=== PATIENT | male | born 1935 | race Caucasian/White ===

== ENCOUNTER 2016-04-09 06:01 | Inpatient (IN) ==
[2016-04-09] MEDS ORDERED: Clindamycin 900 MG/50 ML 900 MG/50 ML IV.SOLN IVPB ONE (06:23)
[2016-04-09] MEDS ORDERED: Albuterol 2.5 MG/3 ML NEBULIZER IH ONE (06:26)
[2016-04-09] MEDS ORDERED: Ringers Solution, Lactated 1,000 ML IVC SCH ×3 (06:30→13:47)
[2016-04-09] MEDS ORDERED: *HR* Rocuronium Bromide 50 MG/5 ML VIAL ONE (06:41)
[2016-04-09] MEDS ORDERED: *HR* Phenylephrine 10 MG/ML VIAL ONE (06:41)
[2016-04-09] MEDS ORDERED: Lidocaine -MPF 2% 2 ML VIAL ONE (06:41)
[2016-04-09] MEDS ORDERED: Lidocaine -MPF 4% 5 ML AMPUL ONE (06:41)
[2016-04-09] MEDS ORDERED: *HR* Succinylcholine 200 MG/10 ML VIAL IVP ONE (06:41)
[2016-04-09] MEDS ORDERED: Ondansetron 4 MG/2 ML VIAL ONE (06:41)
[2016-04-09] MEDS ORDERED: Dexamethasone 4 MG/ML VIAL ONE (06:41)
[2016-04-09] MEDS ORDERED: *HR* FentaNYL (PF) 100 MCG/2 ML VIAL ONE (06:42)
[2016-04-09] MEDS ORDERED: *HR* Remifentanil 1 MG VIAL IVP ONE ×2 (06:42→11:13)
[2016-04-09] MEDS ORDERED: *HR* Propofol 200 MG/20 ML VIAL IVP ONE (06:42)
--- NOTE | 2016-04-09 07:00 | Anesthesia Evaluation PreOp ---
Date of Encounter: 04/09/16 Time of Encounter: 06:58 - Past History Planned Operation: PLIF L1-2 Cardiac History: HTN, Hyperlipidemia, Cardiac Surgery, Pacemaker/ICD (Pacemaker 2008 - interogated 12/24/15) Pulmonary History: Smoker, Pack/yr (1/2 ppd), COPD VOCATIONAL EDUCATION PROFESSIONAL History: Denies Any Significant HX Other Medical History: Diabetes Type II Anesthesia History: No Prior Anesthetic Complications, Past Anesthesia (Back Sx) Alcohol Use: none Drug use: none Medications and Allergies Aspirin 81 mg PO DAILY 04/09/16 [History] Clopidogrel [Plavix] 75 mg PO DAILY 04/09/16 [History] Fluticasone Propionate Nasal [Flonase] 1 spr NS DAILY PRN 04/09/16 [History] HYDROcodone/Acet 7.5/325 mg [[place] 7.5-325 mg] 1 tab PO Q6H PRN 04/09/16 [ History] Insulin Human Regular [HumuLIN R] 0 unit SQ AD MDD sliding scale dose 04/09/16 [History] Insulin NPH, HUMAN [HumuLIN N] 10 unit SQ QPM 04/09/16 [History] Insulin NPH, HUMAN [HumuLIN N] 18 unit SQ QAM 04/09/16 [History] Lisinopril [Zestril] 10 mg PO DAILY 04/09/16 [History] Lovastatin 40 mg PO BID 04/09/16 [History] Metoprolol XL (24 HR) Succ [Toprol XL] 12.5 mg PO BID 04/09/16 [History] Multivit-Min/FA/Lycopen/Lutein [Centrum Silver Men Tablet] 1 each PO DAILY 04/09 [History] NIFEdipine [Nifedipine ER] 30 mg PO DAILY 04/09/16 [History] Nitroglycerin 1 spr NS Q5M PRN 04/09/16 [History] Allergies Amoxicillin Allergy (Verified 04/09/16 06:53) Rash atorvastatin [From Lipitor] Allergy (Verified 04/09/16 06:53) myalgia clavulanic acid [From Augmentin] Allergy (Verified 04/09/16 06:53) Rash esomeprazole [From Nexium] Allergy (Verified 04/09/16 06:53) Abdominal Pain levofloxacin [From Levaquin] Allergy (Verified 04/09/16 06:53) unknown unknown per patient gabapentin Adverse Reaction (Verified 04/09/16 06:53) confusion, fatigue metoclopramide [From Reglan] Adverse Reaction (Verified 04/09/16 06:53) Abdominal Pain - Meds/Allergy Pre-op Review Medications Reviewed: Yes Allergies Reviewed: Yes Beta Blockers on Current Med List: Yes If Beta Blockers taken, Date/Time (Last Dose taken): 04/09/2016 04:00 Anesthesia Results - Labs Laboratory Tests 02/11/16 02/11/16 04/03/16 14:35 14:35 15:15 WBC Hgb Hct Plt Count INR 1.0 Sodium Potassium Chloride Carbon Dioxide BUN Creatinine Glucose 177 H Hemoglobin A1c 6.9 H 04/03/16 04/03/16 04/07/16 15:15 15:15 12:43 WBC 11.1 Hgb 16.0 Hct 49.0 Plt Count 248 INR Sodium 140 Potassium 4.3 Chloride 105 Carbon Dioxide 26 BUN 21 Creatinine 1.39 H Glucose Hemoglobin A1c Echo 11/27 EF-50-55% Min valvular dx - Imaging EKG: image reviewed (Vent paced) Anesthesia Exam O2 Sat Height 1.7 m Height 1.7 m Height 1.7 m Weight 68.492 kg Weight 68.492 kg Weight 68.492 kg O2 Sat by Pulse Oximetry 99 O2 Sat by Pulse Oximetry 99 Vital Signs Temp Pulse Resp BP Pulse Ox 97.7 F 84 18 133/72 99 04/09/16 06:38 04/09/16 06:38 04/09/16 06:38 04/09/16 06:38 04/09/16 06:38 Height: 5'7'' Weight: 151# NPO (# of Hours): > 8 Hrs Pain Scale: 0 Pain Scale Used: Numeric (1 - 10) - HEENT Pupil (Motor): Pupils equal, EOMI Mallampati: II Teeth: Missing Denture Type: Upper: Complete Oral Opening: Greater than 3 - VOCATIONAL EDUCATION PROFESSIONAL LOC: Oriented VOCATIONAL EDUCATION PROFESSIONAL Motor: Normal RUE, Normal LUE, Normal RLE, Normal LLE, Normal Face VOCATIONAL EDUCATION PROFESSIONAL Sensory: Normal: RUE, LUE, RLE, LLE, Face - Cardiac Rhythm: Regular Murmur: None JVD: No Carotid Bruit: No - Pulmonary Breath Sounds: bilateral Clear Respiratory Effort: Symmetrical Anesthesia Assess/Plan ASA Score: 3 Modified Jus Scale for Level of Consciousness: Cooperative, oriented, and tranquil Anesthetic Plan: General Autologous Blood: Yes Monitoring Plan: Standard Monitors Recovery Plan: PACU
--- NOTE | 2016-04-09 07:35 | History & Physical Report ---
Date of Encounter: 04/09/16 Time of Encounter: 07:35 24 Hour HP Update - Instructions Instructions: If the History and Physical is less than 30 days old and was completed prior to A.M. admission and or procedure and has NOT been updated on calendar day of procedure please complete this update prior to performing procedure. - Update Patient reports changes in Medical Condition: No Changes in assessment/condition: No Changes in Medication: No Preop tests/diagnostics Reviewed: Yes Pre-Op MRSA Screen: Negative Surgery Remains Indicated: Yes Consent for Planned Operative Procedure(s) Verified: Yes - Pre-Operative Checklist Preoperative Checklist Indicated: No Prophylactic Antibiotic Ordered: Yes Home Medications Include Beta Jn: No Beta Jn Taken Today (Day of Surgery): No Beta Jn Taken Yesterday (Day Prior to Surgery): No Is VTE Prophylaxis Indicated?: Yes
[2016-04-09] MEDS ORDERED: *HR* Vasopressin 20 UNIT/ML VIAL ONE (07:42)
--- NOTE | 2016-04-09 12:29 | Orthopedic Operative Note ---
Date of procedure: 04/09/16 Pre-op diagnosis: lumbar stenosis, lumbar radiculopathy, s/p lumbar fusion Post-op diagnosis: same Operation/Findings: Exploration of fusion, removal of hardware, posterior lumbar inerbody fusion L1- L2: The patient successfully underwent general endotracheal anesthesia. The patient was given antibiotics prior to the start of the procedure. Compression boots and stockings were used for deep vein thrombosis prophylaxis. A Salgado catheter was placed. Leads for neuro monitoring were placed on the upper and lower extremities. This included the cranium. The neuro monitoring personnel confirmed there were satisfactory readings prior to the start of the procedure. The patient was turned prone on the Lukas table. The back was prepped and draped in the usual sterile fashion. An incision was was marked and centered over the involved L1-L5 levels in the mid line. He had a history of previous instrumented fusion. The incision was deepened through the lumbar fascia. Bovie cautery and Choi elevators were used to reflect the paraspinal musculature at the lateral extent of the transverse processes of the involved L1 -L4 levels. We explored and palpated the fusion mass and instrumentation from L2-L5. There appeared to be fusion without significant pseudoarthrosis and with appropriate placement of the instrumentation. Since there was a solid arthrodesis we elected not to remove all the previous instrumentation. We used a cutting bur to cut through the quarter-inch rods bilaterally distal to the L2 pedicle screws and proximal to the L3 pedicle screws. We subsequently removed the remaining emilee and L2 pedicle construct bilaterally, leaving the L3-L5 pedicle screws with rods intact. We then placed pedicle screws in standard fashion with the aid of fluoroscopy and anatomic landmarks. Briefly a starter awl was used. A gearshift was subsequently used to enter the oversize load pilot escort hole via a transpedicular route into the vertebral body. The oversize load pilot escort hole was tapped with an undersized instrument, and subsequently four 6.5 x 40 mm pedicle screws were placed bilaterally at the indicated L1 and L2 levels. The screws were tested with the aid of the neurologic monitoring staff via pedicle screw stimulation. All reading suggested there was no significant cortical wall breech. The screws were also evaluated fluoro- graphically and appeared to be in satisfactory position. We then turned our attention to the decompression portion of the procedure. We removed the supraspinous and interspinous ligaments and subsequently the insertion of the ligamentum flavum on the undersurface of the proximal L1 lamina was dislodged with a curette. We then removed the ligamentum flavum as well as undercut the facets at this L1-L2 level to decompress the lateral recesses. We also performed a L1 laminectomy. This stenosis at this level was extensive and required bilateral medial facetectomies as well as undercutting the facets. After the decompression, which was over and above that which was required to place the interbody graft, the foramen and traversing roots at this level were found to be free and patent. We also took a large portion of the right L1-L2 facet and an approach more similar with a transforaminal approach. We then protected the neural elements including the thecal sac and traversing nerve root on the right at L1- L2 with a dural retractor. We made an annulotomy into the L1-L2 disc space and then removed entire L1-L2 disc material using Pituitary instruments. We trialed various size grafts after the endplates were prepared for graft insertion. An 8 x 26 enter body graft fit well within the L1-L2 disc space. We obtained some bone from the right posterior superior iliac spine through us a separate incision and combined with this with the bone which we had saved from the laminectomy portion of the procedure. This autograft bone was first placed in the anterior portion of the L1-L2 disc space and additional bone was placed within the interbody graft spacer. We then placed the interbody graft spacer obliquely across the disc space towards the midline while protecting the neural elements with a root retractor. When the graft was found to be in satisfactory position the business development specialist was removed. We then copiously irrigated the wound. We then decorticated the transverse processes as well as the facet joints of the involved L1-L2 and L2-3 level levels to aid in the posterolateral fusion. We placed autograft bone in the lateral gutters over these L1, L2, and L3 regions. We then placed rods within the screw heads at L1-L2 and connected this construct using a Mobile to the previous instrumentation at L2-L5. We locked and finally tightened construct which now and L1-L5 with interbody graft at L1-L2. We then closed the wound in layers with 1 Vicryl for the fascia, 2-0 Vicryl. Subcutaneous tissue, and Dermabond was used for skin closure. Sterile dressings were placed over the wound. The patient was turned supine on a hospital bed and extubated. All sponge instruments and needle counts were correct at the end of the procedure. The patient tolerated the procedure well without complications. Anesthesia: GETA Surgeon: Kendall Lara Jr Estimated blood loss (cc): 200 Condition: stable Disposition: PACU
[2016-04-09] MEDS: *HR* Morphine 2 MG/ML SYRINGE IVP PRN ×4 (12:38→13:13)
[2016-04-09] MEDS ORDERED: Furosemide 20 MG/2 ML VIAL IVP ONE (12:57)
--- NOTE | 2016-04-09 13:20 | Anesthesia Evaluation Post Op ---
Date of Encounter: 04/09/16 Time of Encounter: 13:18 - Vital Signs Vital Signs: Vital Signs/O2 Sat/Glucose, Most Recent Temp Pulse Resp BP Pulse Ox 97.0 F L 60 14 151/71 92 L 04/09/16 12:59 04/09/16 12:59 04/09/16 12:59 04/09/16 12:59 04/09/16 12:59 Blood Glucose* 122 - Lungs Lungs: Clear Ascult./Percussion - Airway Airway: Non-obstructed - Cardiovascular Regular Rate, Baseline Rhythm - Mental Status Mental Status: Alert & Oriented, Answers Appropriately - Pain Pain Scale: 0 (treated with morphine, resting comfortably) Pain Scale used: Numeric (1 - 10) - Nausea Vomiting Nausea Vomiting: Not Present - Hydration Hydration: NPO Notes: initially low U.O., recieved lasix 5mg, U.O. improved. 04/09/16 13:19 - Discharge PostOp Status: Transfer Patient to floor
[2016-04-09] MEDS ORDERED: Fluticasone Propionate Nasal 50 MCG/SPRAY BOTTLE NS PRN (13:47)
[2016-04-09] MEDS ORDERED: Naloxone 0.4 MG/ML INJ IVP PRN (13:47)
[2016-04-09] MEDS ORDERED: Nitroglycerin Spray 4.9 GM BOTTLE TL PRN (13:47)
[2016-04-09] MEDS ORDERED: Sennosides 8.6 MG TABLET PO PRN (13:47)
[2016-04-09] MEDS ORDERED: *HR* Morphine 2 MG/ML SYRINGE IVP PRN (13:47)
[2016-04-09] MEDS: *HR* OxyCODONE Immed Rel 5 MG TABLET PO PRN ×2 (15:47→22:07)
[2016-04-09] MEDS: Clindamycin 600 MG/50 ML 600 MG/50 ML IV.SOLN IVPB SCH ×2 (15:47→23:15)
[2016-04-09] MEDS ORDERED: ceFAZolin 2,000 MG in D5% in Water 100 ML IVPB SCH (16:00)
[2016-04-09] MEDS ORDERED: Insulin NPH 100 UNIT/ML (x5UNIT) SQ SCH (18:00)
[2016-04-09] MEDS: Metoprolol XL (24 HR) Succ 25 MG TAB.ER.24H PO SCH (20:24)
[2016-04-09] MEDS: Ondansetron 4 MG/2 ML VIAL IVP PRN (22:07)
[2016-04-10] MEDS: *HR* Morphine 2 MG/ML SYRINGE IVP PRN (00:53)
[2016-04-10] MEDS: *HR* OxyCODONE Immed Rel 5 MG TABLET PO PRN ×3 (04:45→23:53)
[2016-04-10 04:46] LABS: Basophils % 0.2 %; Eosinophils % 0.1 %; Hematocrit 37.3 % (37.5-50.1); Immature Granulocytes % 0.5 % (0-4); Immature Platelets 4.2 % (1.1-6.1); Lymphocytes # 1.6 K/mcL (0.6-4.6); Lymphocytes % 10.6 %; Mean Corpuscular HGB Conc 33.5 g/dL (31.6-35.5); Mean Corpuscular Hemoglobin 30.1 pg (28.0-33.3); Mean Corpuscular Volume 89.9 fL (83.0-100.0); Mean Platelet Volume 9.8 fL (9.4-12.4); Monocytes # 1.8 K/mcL (0.0-1.3); Neutrophils # 11.6 K/mcL (1.6-8.9); Platelet Count 197 K/mcL (140-400); Red Blood Count 4.15 M/mcL (4.19-5.50); Red Cell Distribution Width 13.7 % (11.5-14.5); Segmented Neutrophils % 76.6 %
[2016-04-10 04:47] LABS: Hemoglobin 12.5 g/dL (12.9-16.9)
[2016-04-10 04:58] LABS: Calcium 8.5 mg/dL (8.6-10.8); Potassium 4.8 mEq/L (3.5-4.5)
--- NOTE | 2016-04-10 06:11 | Electrocardiograph Report ---
Test Date: 2016-04-09 Pat Name: Ricky Wang Department: 106 Room: [facility] Gender: M Wire Worker: [facility] : 1935 Requested By: Obey Walker Order Number: [id number] Reading MD: Mason Baker MD Measurements Intervals [place] Rate: 60 P: 252 AL: 149 QRS: -90 QRSD: 159 T: 117 QT: 453 QTc: 453 Interpretive Statements ELECTRONIC ATRIAL PACEMAKER ELECTRONIC VENTRICULAR PACEMAKER ABNORMAL RHYTHM ECG Electronically Signed On 04-10-16 06:08:21 EST by Mason Baker MD
[2016-04-10] MEDS ORDERED: Aspirin 81 MG TAB.CHEW PO SCH (09:00)
[2016-04-10] MEDS ORDERED: Insulin NPH 100 UNIT/ML (x5UNIT) SQ SCH (09:00)
[2016-04-10] MEDS ORDERED: NIFEdipine XL (24 HR) 30 MG TAB.ER.24 PO SCH (09:00)
[2016-04-10] MEDS: Metoprolol XL (24 HR) Succ 25 MG TAB.ER.24H PO SCH ×2 (09:13→20:14)
[2016-04-10] MEDS: Multivit/Ca/Min/Fe/FA 1 TAB TABLET PO SCH (09:15)
[2016-04-10] MEDS: Insulin NPH 100 UNIT/ML (x5UNIT) SQ SCH ×2 (09:50→17:07)
[2016-04-10] MEDS: Ondansetron 4 MG/2 ML VIAL IVP PRN (09:56)
--- NOTE | 2016-04-10 17:11 | Spine Progress Note ---
Date of Encounter: 04/10/16 Time of Encounter: 17:08 Subjective Principal diagnosis: lumbar stenosis, lumbar radiculopathy, history of lumbar fusion Interval history: The patient is without complaints. Afebrile vital signs are stable. Dressing changess due to sauraion wih some heme. Neurovascularly intact with regard to bilateral lower extremities. Fires all upper and lower extremity motor groups. Assessment :stable. Plan mobilize ,continue analgesics, discharge planning. Objective Vital signs: Vital Signs Temp Pulse Resp BP Pulse Ox 04/10/16 14:58 99.4 F 60 14 136/60 99 04/10/16 11:12 99.6 F 60 17 96 04/10/16 07:04 99.6 F 60 16 126/64 93 L 04/10/16 04:46 99.8 F H 60 16 137/61 95 04/10/16 00:00 98.4 F 62 17 154/62 96 04/09/16 20:33 98.8 F 62 16 153/66 99 Intake and Output 04/10/16 04/10/16 04/10/16 07:59 15:59 23:59 Intake Total 300 / 300 480 / 480 Output Total 3300 / 3300 Balance -3000 / -3000 480 / 480 Intake: IV Fluids 50 / 50 Cleocin 600 MG/50 ML 600 50 / 50 mg In 50 ml @ 50 mls/hr IVPB Q8H [facility] Rx#: [id number] Oral 250 / 250 480 / 480 Output: Urine 750 / 750 Urethral ([place]) 750 / 750 Catheter 2550 / 2550 Other: Blood Glucose* 180 196 140 - Labs CBC & BMP: 04/10/16 04:34 04/10/16 04:34 Labs: Abnormal lab results WBC 15.2 K/mcL (4.3-11.1) H 04/10/16 04:34 RBC 4.15 M/mcL (4.19-5.50) L 04/10/16 04:34 Hgb 12.5 g/dL (12.9-16.9) L D 04/10/16 04:34 Hct 37.3 % (37.5-50.1) L 04/10/16 04:34 Neutrophils # 11.6 K/mcL (1.6-8.9) H 04/10/16 04:34 Monocytes # 1.8 K/mcL (0.0-1.3) H 04/10/16 04:34 Sodium 135 mEq/L (136-145) L 04/10/16 04:34 Potassium 4.8 mEq/L (3.5-4.5) H 04/10/16 04:34 Creatinine 1.44 mg/dL (0.72-1.25) H 04/10/16 04:34 Est GFR ( Amer) 58 (> 60) L 04/10/16 04:34 Est GFR (Non-Af Amer) 47 (> 60) L 04/10/16 04:34 Glucose 222 mg/dL (70-99) H 04/10/16 04:34 POC Glucose 195 (58-89) H 04/09/16 20:13 Calcium 8.5 mg/dL (8.6-10.8) L 04/10/16 04:34 Consult Discharge Plan - Plan Referrals: Niki Carmona, KONG [Primary Care Provider] - 06/24/16 12:30 pm
[2016-04-10] MEDS: Aspirin 81 MG TAB.CHEW PO SCH (18:16)
[2016-04-10] MEDS: NIFEdipine XL (24 HR) 30 MG TAB.ER.24 PO SCH (18:16)
[2016-04-10] MEDS: Insulin LISPRO 300 UNITS/3 ML VIAL SQ SCH (20:14)
[2016-04-11] MEDS: Metoprolol XL (24 HR) Succ 25 MG TAB.ER.24H PO SCH ×2 (08:13→19:42)
[2016-04-11] MEDS: Multivit/Ca/Min/Fe/FA 1 TAB TABLET PO SCH (08:14)
[2016-04-11] MEDS: Insulin LISPRO 300 UNITS/3 ML VIAL SQ SCH ×4 (08:15→21:23)
[2016-04-11] MEDS: Insulin NPH 100 UNIT/ML (x5UNIT) SQ SCH ×2 (09:13→17:49)
--- NOTE | 2016-04-11 13:01 | Discharge Summary ---
Date of Encounter: 04/11/16 Time of Encounter: 12:59 - Discharge Diagnosis (1) Lumbar stenosis Priority: Primary Status: Chronic (2) Lumbar radiculopathy Priority: Secondary Status: Chronic (3) Status post lumbar spinal fusion Priority: Secondary Status: Chronic - Discharge Medications Prescriptions: OxyCODONE Immed Rel [Roxicodone 5 MG] 5 mg PO Q6HR PRN #60 tablet PRN Reason: Severe Pain Home Medications: Aspirin 81 mg PO DAILY 04/09/16 [History] Clopidogrel [Plavix] 75 mg PO DAILY 04/09/16 [History] Fluticasone Propionate Nasal [Flonase] 1 spr NS DAILY PRN 04/09/16 [History] HYDROcodone/Acet 7.5/325 mg [[place] 7.5-325 mg] 1 tab PO Q6H PRN 04/09/16 [ History] Insulin Human Regular [HumuLIN R] 0 unit SQ AD MDD sliding scale dose 04/09/16 [History] Insulin NPH, HUMAN [HumuLIN N] 10 unit SQ QPM 04/09/16 [History] Insulin NPH, HUMAN [HumuLIN N] 18 unit SQ QAM 04/09/16 [History] Lisinopril [Zestril] 10 mg PO DAILY 04/09/16 [History] Lovastatin 40 mg PO BID 04/09/16 [History] Metoprolol XL (24 HR) Succ [Toprol Xl] 12.5 mg PO BID 04/09/16 [History] Multivit-Min/FA/Lycopen/Lutein [Centrum Silver Men Tablet] 1 each PO DAILY 04/09 [History] NIFEdipine [Nifedipine ER] 30 mg PO DAILY 04/09/16 [History] Nitroglycerin 1 spr NS Q5M PRN 04/09/16 [History] OxyCODONE Immed Rel [Roxicodone 5 MG] 5 mg PO Q6HR PRN #60 tablet 04/11/16 [Rx] Allergies/Adverse Reactions: Allergies Amoxicillin Allergy (Verified 04/09/16 06:53) Rash atorvastatin [From Lipitor] Allergy (Verified 04/09/16 06:53) myalgia clavulanic acid [From Augmentin] Allergy (Verified 04/09/16 06:53) Rash esomeprazole [From Nexium] Allergy (Verified 04/09/16 06:53) Abdominal Pain levofloxacin [From Levaquin] Allergy (Verified 04/09/16 06:53) unknown unknown per patient gabapentin Adverse Reaction (Verified 04/09/16 06:53) confusion, fatigue metoclopramide [From Reglan] Adverse Reaction (Verified 04/09/16 06:53) Abdominal Pain Labs on day of discharge: Labs from last 24 hours 04/10/16 04/10/16 04/10/16 20:11 16:43 11:06 POC Glucose 135 H 140 H 196 H 04/10/16 07:43 POC Glucose 180 H - Impressions ITS Impressions Lumbar Spine X-Ray 04/09/16 00:00 IMPRESSION: Interval revision of posterior fusion of the lumbar spine which now includes L1 through L5. D/ / 04/09/2016 13:55:40 You Pretty MD / radha Interpreting Provider: You Pretty MD Lumbar Spine X-Ray 04/11/16 09:30 IMPRESSION: Multilevel degenerative changes seen within the lumbar spine status post posterior spinal fusion. The hardware appears intact, and stable in alignment. No interval change. D/ / John Harrison MD / John Harrison MD Interpreting Provider: John Harrison MD Date of admission: 04/09/16 13:51 Primary care physician: Niki Carmona CNP Consults: 04/09/16 13:47 Consult to Occupational Therapy [CONS] Routine Comment: Evaluate, develop and implement POC Consult to Physical Therapy [CONS] Routine Comment: Evaluate, develop and implement POC Consult to Spine Navigator [CONS] [CONS] Routine 04/11/16 05:16 Consult to Manager Support [CONS] Routine Reason for SW Consult: Pt states he want to go to rehab. Pt has limitied mobility and no help at home. - Patient Status Disposition: Home Health Service Condition: Good Functional capacity at discharge: uses cane/walker Overall status at discharge: patient is progressing back to baseline - Discharge Instructions Follow Up With: Niki Carmona CNP [Primary Care Provider] - 06/24/16 12:30 pm - Diet and Activity Activity: as per physical therapy Diet: advance to your usual diet - Hospital Course Hospital course: Mr. Wang is a 80 year old male The patient had an uneventful postoperative course. Progressed from intravenous analgesic needs to oral analgesic needs only. Remained neurovascularly intact and mobilized satisfactorily. All intraoperative and/or postoperative radiographic studies were satisfactory. Patient is discharged with plan for rehabilitation and follow-up in 2 weeks post discharge on analgesic medication and patient's home medications. - Time Spent with Patient Total time spent providing and/or coordinating discharge services: - VTE Documentation of Mechanical Device: Intermittent pneumatic compression device
[2016-04-11] MEDS: *HR* OxyCODONE Immed Rel 5 MG TABLET PO PRN ×2 (15:47→23:49)
[2016-04-11] MEDS: NIFEdipine XL (24 HR) 30 MG TAB.ER.24 PO SCH (17:49)
[2016-04-11] MEDS: Aspirin 81 MG TAB.CHEW PO SCH (17:49)
[2016-04-11] MEDS ORDERED: NIFEdipine XL (24 HR) 30 MG TAB.ER.24 PO SCH (19:00)
[2016-04-12] MEDS: *HR* Morphine 2 MG/ML SYRINGE IVP PRN (02:44)
[2016-04-12] MEDS: Insulin LISPRO 300 UNITS/3 ML VIAL SQ SCH ×4 (07:26→20:58)
[2016-04-12] MEDS: Metoprolol XL (24 HR) Succ 25 MG TAB.ER.24H PO SCH ×2 (08:49→21:07)
[2016-04-12] MEDS: Multivit/Ca/Min/Fe/FA 1 TAB TABLET PO SCH (08:49)
[2016-04-12] MEDS: Insulin NPH 100 UNIT/ML (x5UNIT) SQ SCH ×2 (08:49→17:05)
[2016-04-12 13:31] LABS: Basophils % 0.1 %; Eosinophils % 0.3 %; Hemoglobin 11.8 g/dL (12.9-16.9); Immature Granulocytes % 0.5 % (0-4); Immature Platelets 4.9 % (1.1-6.1); Lymphocytes % 7.3 %; Mean Corpuscular HGB Conc 33.7 g/dL (31.6-35.5); Mean Corpuscular Hemoglobin 30.4 pg (28.0-33.3); Mean Corpuscular Volume 90.2 fL (83.0-100.0); Mean Platelet Volume 9.9 fL (9.4-12.4); Monocytes # 1.3 K/mcL (0.0-1.3); Monocytes % 9.6 %; Platelet Count 190 K/mcL (140-400); Red Blood Count 3.88 M/mcL (4.19-5.50); Red Cell Distribution Width 13.4 % (11.5-14.5); Segmented Neutrophils % 82.2 %
--- NOTE | 2016-04-12 14:16 | Orthopedics Progress Note ---
Date of Encounter: 04/12/16 Time of Encounter: 14:00 - Assessment and Plan (1) Status post lumbar spinal fusion Current Visit: Yes Status: Chronic Postoperative day #3, wound is still draining and patient's. Using fevers Patient placed on IV vancomycin We will do a complete fever workup on the patient. Subjective Principal diagnosis: lumbar stenosis, lumbar radiculopathy, history of lumbar fusion Interval history: The patient states he had some burning of both legs last night, but is doing well today. Back: Serosanguineous drainage, dressing was changed last night. Incision is intact, no erythema. Bilateral knees are grossly neurovascularly intact. Bilateral calves are soft and nontender Objective Vital signs: Vital Signs Temp Pulse Resp BP Pulse Ox 04/12/16 11:41 100.3 F H 93 18 154/64 97 04/12/16 06:38 98.9 F 69 16 124/58 93 L 04/12/16 03:14 99.5 F 66 16 120/56 91 L 04/11/16 23:39 99.4 F 59 16 123/56 97 04/11/16 19:55 99.5 F 63 16 130/64 96 04/11/16 15:14 99.3 F 60 18 125/48 98 Intake and Output 04/11/16 04/12/16 04/12/16 23:59 07:59 15:59 Intake Total 150 / 150 Output Total 610 / 610 250 / 250 650 / 650 Balance -460 / -460 -250 / -250 -650 / -650 Intake: Oral 150 / 150 Output: Urine 610 / 610 250 / 250 650 / 650 Other: Blood Glucose* 123 105 188 Incision: draining (Serosanguineous) - Labs CBC & BMP: 04/12/16 13:22 04/10/16 04:34 Labs: Abnormal lab results WBC 13.4 K/mcL (4.3-11.1) H 04/12/16 13:22 RBC 3.88 M/mcL (4.19-5.50) L 04/12/16 13:22 Hgb 11.8 g/dL (12.9-16.9) L 04/12/16 13:22 Hct 35.0 % (37.5-50.1) L 04/12/16 13:22 Neutrophils # 11.0 K/mcL (1.6-8.9) H 04/12/16 13:22 Sodium 135 mEq/L (136-145) L 04/10/16 04:34 Potassium 4.8 mEq/L (3.5-4.5) H 04/10/16 04:34 Creatinine 1.44 mg/dL (0.72-1.25) H 04/10/16 04:34 Est GFR ( Amer) 58 (> 60) L 04/10/16 04:34 Est GFR (Non-Af Amer) 47 (> 60) L 04/10/16 04:34 Glucose 222 mg/dL (70-99) H 04/10/16 04:34 POC Glucose 123 (58-89) H 04/11/16 19:57 Calcium 8.5 mg/dL (8.6-10.8) L 04/10/16 04:34 C-Reactive Protein 157 mg/L (Less than 5) H 04/12/16 13:22 - VTE Documentation of Mechanical Device: Intermittent pneumatic compression device Consult Discharge Plan - Plan Referrals: Niki Carmona CNP [Primary Care Provider] - 06/24/16 12:30 pm Prescriptions: OxyCODONE Immed Rel [Roxicodone 5 MG] 5 mg PO Q6HR PRN #60 tablet PRN Reason: Severe Pain
[2016-04-12] MEDS: Vancomycin 1,000 MG in D5% in Water 250 ML IVPB SCH (14:20)
[2016-04-12] MEDS: Acetaminophen 325 MG TABLET PO PRN (14:20)
[2016-04-12 18:13] LABS: Bacteria,Urine Many per hpf (None-Few); Hyaline Casts,Urine None Seen per lpf (None-Few); Squamous Epithelial Cell,Urine Moderate per lpf (None-Few); WBC,Urine TNTC per hpf (0-3)
[2016-04-12 18:15] LABS: Bilirubin,Urine Negative (Negative); Blood,Urine Small (Negative); Clarity,Urine Clear (Clear); Color,Urine Yellow (Yellow); Glucose,Urine (UA) Normal (Normal); Ketones,Urine Negative (Negative); Leukocyte Esterase,Urine Moderate (Negative); Nitrite,Urine Negative (Negative); Protein,Urine 100 mg/dL (Neg-Trace); Specific Gravity,Urine 1.015 (1.010-1.025); Urobilinogen,Urine Normal (Normal)
[2016-04-12] MEDS: Aspirin 81 MG TAB.CHEW PO SCH (18:34)
[2016-04-12] MEDS: NIFEdipine XL (24 HR) 30 MG TAB.ER.24 PO SCH (18:34)
[2016-04-12] MEDS: *HR* OxyCODONE Immed Rel 5 MG TABLET PO PRN (21:14)
[2016-04-13] MEDS: Insulin LISPRO 300 UNITS/3 ML VIAL SQ SCH ×4 (08:15→19:25)
[2016-04-13] MEDS ORDERED: MOM Conc 10 ML UD.LIQ PO PRN (08:50)
[2016-04-13] MEDS: Multivit/Ca/Min/Fe/FA 1 TAB TABLET PO SCH (08:58)
[2016-04-13] MEDS: Insulin NPH 100 UNIT/ML (x5UNIT) SQ SCH ×2 (08:58→17:40)
[2016-04-13] MEDS: Metoprolol XL (24 HR) Succ 25 MG TAB.ER.24H PO SCH ×2 (08:58→19:21)
[2016-04-13 09:19] LABS: Basophils % 0.2 %; Eosinophils # 0.2 K/mcL (0.0-0.6); Eosinophils % 1.8 %; Hematocrit 35.5 % (37.5-50.1); Hemoglobin 11.8 g/dL (12.9-16.9); Immature Granulocytes % 0.6 % (0-4); Immature Platelets 4.3 % (1.1-6.1); Lymphocytes # 0.8 K/mcL (0.6-4.6); Mean Corpuscular HGB Conc 33.2 g/dL (31.6-35.5); Mean Corpuscular Hemoglobin 30.3 pg (28.0-33.3); Mean Platelet Volume 9.8 fL (9.4-12.4); Monocytes # 1.2 K/mcL (0.0-1.3); Monocytes % 9.4 %; Neutrophils # 10.8 K/mcL (1.6-8.9); Platelet Count 232 K/mcL (140-400); Red Cell Distribution Width 13.5 % (11.5-14.5)
[2016-04-13] MEDS: *HR* OxyCODONE Immed Rel 5 MG TABLET PO PRN ×2 (11:16→19:21)
[2016-04-13 12:35] LABS: BUN/Creatinine Ratio 16 (6-26); Blood Urea Nitrogen 21 mg/dL (8-26); eGFR For African Americans > 60 (> 60); eGFR For Non-African Americans 52 (> 60)
--- NOTE | 2016-04-13 13:15 | Orthopedics Progress Note ---
Date of Encounter: 04/13/16 Time of Encounter: 13:12 - Assessment and Plan (1) Status post lumbar spinal fusion Current Visit: Yes Status: Chronic Postoperative day #, wound is still draining. Fevers have stopped Positive urinalysis Continue on IV vancomycin Dr. Lara will be seeing the patient this evening. Subjective Principal diagnosis: lumbar stenosis, lumbar radiculopathy, history of lumbar fusion Interval history: The patient states he had some burning of both legs last night, but is doing well today. He says usually when he sits up for a while and his legs dangle down the remaining goes away Back: Serosanguineous drainage, dressing was changed this morning, partially so. Bilateral extremities are grossly neurovascularly intact. Bilateral calves are soft and nontender Objective Vital signs: Vital Signs Temp Pulse Resp BP Pulse Ox 04/13/16 10:09 98.1 F 64 18 137/56 95 04/13/16 08:56 60 134/52 04/13/16 06:22 97.9 F 64 16 104/53 96 04/13/16 00:00 98.2 F 61 14 108/53 95 04/12/16 21:20 98.6 F 63 14 112/49 94 L 04/12/16 21:00 95 04/12/16 15:49 99.5 F 04/12/16 14:56 98.8 F 97 16 147/68 96 Intake and Output 04/12/16 04/13/16 04/13/16 23:59 07:59 15:59 Output Total 300 / 300 300 / 300 Balance -300 / -300 -300 / -300 Output: Urine 300 / 300 300 / 300 Other: Blood Glucose* 211 114 179 Incision: draining (Mild serosanguineous drainage) - Labs CBC & BMP: 04/13/16 09:06 04/13/16 12:10 Labs: Abnormal lab results WBC 13.2 K/mcL (4.3-11.1) H 04/13/16 09:06 RBC 3.90 M/mcL (4.19-5.50) L 04/13/16 09:06 Hgb 11.8 g/dL (12.9-16.9) L 04/13/16 09:06 Hct 35.5 % (37.5-50.1) L 04/13/16 09:06 Neutrophils # 10.8 K/mcL (1.6-8.9) H 04/13/16 09:06 ESR 55 mm/hr (0-10) H 04/13/16 09:06 Sodium 135 mEq/L (136-145) L 04/10/16 04:34 Potassium 4.8 mEq/L (3.5-4.5) H 04/10/16 04:34 Creatinine 1.34 mg/dL (0.72-1.25) H 04/13/16 12:10 Est GFR (Non-Af Amer) 52 (> 60) L 04/13/16 12:10 Glucose 222 mg/dL (70-99) H 04/10/16 04:34 POC Glucose 211 (58-89) H 04/12/16 19:39 Calcium 8.5 mg/dL (8.6-10.8) L 04/10/16 04:34 C-Reactive Protein 157 mg/L (Less than 5) H 04/12/16 13:22 Urine Protein 100 mg/dL (Neg-Trace) H 04/12/16 18:00 Urine Blood Small (Negative) H 04/12/16 18:00 Ur Leukocyte Esterase Moderate (Negative) H 04/12/16 18:00 Urine Microscopic RBC 3-5 per hpf (0-3) H 04/12/16 18:00 Urine Microscopic WBC TNTC per hpf (0-3) H 04/12/16 18:00 Ur Squamous Epith Cells Moderate per lpf (None-Few) H 04/12/16 18:00 Urine Bacteria Many per hpf (None-Few) H 04/12/16 18:00 Ur Culture Indicated? YES (NO) A 04/12/16 18:00 - VTE Documentation of Mechanical Device: Intermittent pneumatic compression device Consult Discharge Plan - Plan Referrals: Niki Carmona, [employer] [Primary Care Provider] - 06/24/16 12:30 pm Prescriptions: OxyCODONE Immed Rel [Roxicodone 5 MG] 5 mg PO Q6HR PRN #60 tablet PRN Reason: Severe Pain
[2016-04-13] MEDS: Vancomycin 1,000 MG in D5% in Water 250 ML IVPB SCH (14:45)
[2016-04-13] MEDS: NIFEdipine XL (24 HR) 30 MG TAB.ER.24 PO SCH (19:25)
[2016-04-13] MEDS: Aspirin 81 MG TAB.CHEW PO SCH (19:25)
[2016-04-13] MEDS: Acetaminophen 325 MG TABLET PO PRN (22:10)
[2016-04-14 06:28] VITALS: BP 125/65
[2016-04-14] MEDS: Insulin LISPRO 300 UNITS/3 ML VIAL SQ SCH (07:49)
[2016-04-14] MEDS: Acetaminophen 325 MG TABLET PO PRN (07:54)
[2016-04-14] MEDS: Metoprolol XL (24 HR) Succ 25 MG TAB.ER.24H PO SCH (07:54)
[2016-04-14] MEDS: Multivit/Ca/Min/Fe/FA 1 TAB TABLET PO SCH (07:55)
[2016-04-14] MEDS: Insulin NPH 100 UNIT/ML (x5UNIT) SQ SCH (08:07)
[2016-04-14] MEDS ORDERED: Aminoglycoside Consult 1 EACH MC ONE (11:36)
== END 2016-04-14 11:37 | disposition home health service (06) | DRG 460 ==
LOC: SAMDAY 06:01 → 3NENU 13:51
PROVIDERS: ADMIT Orthopaedic Surgery Orthopaedic Surgery of the Spine; ATTEND Orthopaedic Surgery Orthopaedic Surgery of the Spine

== ENCOUNTER 2019-12-14 15:43 | Inpatient (IN) ==
[2019-12-14] MEDS ORDERED: Naloxone 0.4 MG/ML INJ IVP PRN (20:55)
[2019-12-14] MEDS ORDERED: Acetaminophen 325 MG TABLET PO PRN (20:55)
[2019-12-14] MEDS ORDERED: Perflutren Lipid Microsphere 1.3 ML in 0.9 % Sodium Chloride 8.7 ML IVP PRN (22:11)
[2019-12-14] MEDS ORDERED: Albuterol 2.5 MG/3 ML NEBULIZER IH PRN (22:20)
[2019-12-14] MEDS ORDERED: Dextrose Gel 15 GM/37.5 ML TUBE PO PRN ×2 (22:21)
[2019-12-14] MEDS ORDERED: *HR* Dextrose 50 % in Water (Vial) 50 ML VIAL IVP PRN (22:21)
[2019-12-14] MEDS ORDERED: D5% in Water 1,000 ML IVC PRN (22:21)
[2019-12-14] MEDS: Insulin LISPRO 300 UNITS/3 ML VIAL SQ SCH ×2 (22:29)
[2019-12-14 23:21] LABS: Basophils % 0.2 %; Eosinophils % 0.3 %; Hematocrit 37.6 % (37.5-50.1); Immature Granulocytes % 0.6 % (0-4); Lymphocytes # 1.7 K/mcL (0.6-4.6); Lymphocytes % 15.6 %; Mean Corpuscular HGB Conc 31.9 g/dL (31.6-35.5); Mean Corpuscular Hemoglobin 30.5 pg (28.0-33.3); Mean Corpuscular Volume 95.7 fL (83.0-100.0); Mean Platelet Volume 10.1 fL (9.4-12.4); Monocytes # 1.5 K/mcL (0.0-1.3); Monocytes % 14.4 %; Neutrophils # 7.3 K/mcL (1.6-8.9); Platelet Count 194 K/mcL (140-400); Red Blood Count 3.93 M/mcL (4.19-5.50); Red Cell Distribution Width 13.4 % (11.5-14.5); Segmented Neutrophils % 68.9 %; White Blood Count 10.6 K/mcL (4.3-11.1)
[2019-12-14 23:44] LABS: Calcium 8.4 mg/dL (8.6-10.3); Potassium 3.9 mEq/L (3.5-5.1)
[2019-12-15 03:53] LABS: Bilirubin,Urine Negative (Negative); Blood,Urine Large (Negative); Clarity,Urine Turbid (Clear); Color,Urine Brown (Yellow); Glucose,Urine (UA) 500 mg/dL (Normal); Ketones,Urine Negative (Negative); Leukocyte Esterase,Urine Trace (Negative); Nitrite,Urine Negative (Negative); Protein,Urine 200 mg/dL (Neg-Trace); RBC,Urine 15-30 per hpf (0-3); Specific Gravity,Urine 1.019 (1.010-1.025); Urobilinogen,Urine Normal (Normal); WBC,Urine 0-3 per hpf (0-3)
[2019-12-15 04:54] LABS: Basophils % 0.2 %; Eosinophils # 0.1 K/mcL (0.0-0.6); Eosinophils % 0.6 %; Hematocrit 38.3 % (37.5-50.1); Hemoglobin 12.1 g/dL (12.9-16.9); Immature Granulocytes % 0.5 % (0-4); Lymphocytes # 1.3 K/mcL (0.6-4.6); Lymphocytes % 13.2 %; Mean Corpuscular HGB Conc 31.6 g/dL (31.6-35.5); Mean Corpuscular Volume 94.8 fL (83.0-100.0); Mean Platelet Volume 10.1 fL (9.4-12.4); Monocytes # 1.4 K/mcL (0.0-1.3); Monocytes % 14.3 %; Neutrophils # 6.7 K/mcL (1.6-8.9); Platelet Count 186 K/mcL (140-400); Red Blood Count 4.04 M/mcL (4.19-5.50); Red Cell Distribution Width 13.6 % (11.5-14.5); Segmented Neutrophils % 71.2 %; White Blood Count 9.4 K/mcL (4.3-11.1)
[2019-12-15 05:08] LABS: Calcium 8.8 mg/dL (8.6-10.3); Chol/HDL Ratio 3.4 (0-4.9); Potassium 3.9 mEq/L (3.5-5.1)
[2019-12-15 07:03] LABS: INR 1.3; Prothrombin Time 14.2 Seconds (9.4-12.1)
[2019-12-15] MEDS: Insulin LISPRO 300 UNITS/3 ML VIAL SQ SCH ×4 (07:48→19:59)
[2019-12-15] MEDS ORDERED: Perflutren Lipid Microsphere 1.3 ML in 0.9 % Sodium Chloride 8.7 ML IVP PRN (08:44)
[2019-12-15 08:46] LABS: Estimated Average Glucose 143 mg/dl
[2019-12-15 10:38] LABS: Folate 13.2 ng/mL (3.0-16.0)
[2019-12-15] MEDS: Aspirin 81 MG TAB.CHEW PO SCH (12:10)
[2019-12-15] MEDS ORDERED: Fluticasone Propionate Nasal 50 MCG/SPRAY BOTTLE NS PRN (13:26)
[2019-12-15] MEDS ORDERED: NON-FORMULARY MEDICATION 1 EACH EACH (Diclofenac Sodium 1 APPL) DT PRN (13:26)
[2019-12-15] MEDS: *HR* HYDROcodone/Acet 7.5/325 mg TABLET PO PRN (13:55)
[2019-12-15] MEDS: Finasteride 5 MG TABLET PO SCH (15:15)
[2019-12-15] MEDS ORDERED: Insulin NPH 100 UNIT/ML (x5UNIT) SQ SCH (18:00)
[2019-12-15] MEDS: Metoprolol XL (24 HR) Succ 25 MG TAB.ER.24H PO SCH (20:00)
[2019-12-16 02:21] LABS: Basophils % 0.2 %; Eosinophils # 0.2 K/mcL (0.0-0.6); Eosinophils % 2.1 %; Hematocrit 36.5 % (37.5-50.1); Hemoglobin 11.9 g/dL (12.9-16.9); Immature Granulocytes % 0.5 % (0-4); Lymphocytes # 1.6 K/mcL (0.6-4.6); Lymphocytes % 18.9 %; Mean Corpuscular HGB Conc 32.6 g/dL (31.6-35.5); Mean Corpuscular Volume 95.1 fL (83.0-100.0); Monocytes # 1.1 K/mcL (0.0-1.3); Monocytes % 13.3 %; Neutrophils # 5.4 K/mcL (1.6-8.9); Platelet Count 172 K/mcL (140-400); Red Blood Count 3.84 M/mcL (4.19-5.50); Red Cell Distribution Width 13.4 % (11.5-14.5); White Blood Count 8.3 K/mcL (4.3-11.1)
[2019-12-16 02:42] LABS: Calcium 8.3 mg/dL (8.6-10.3); Phosphorous 3.3 mg/dL (2.7-4.5); Potassium 3.8 mEq/L (3.5-5.1)
[2019-12-16] MEDS ORDERED: lisinopriL 20 MG TABLET PO SCH (09:00)
[2019-12-16] MEDS ORDERED: Multivit/Ca/Min/Fe/FA 1 TAB TABLET PO SCH (09:00)
[2019-12-16] MEDS ORDERED: Insulin NPH 100 UNIT/ML (x5UNIT) SQ SCH (09:00)
[2019-12-16] MEDS: Finasteride 5 MG TABLET PO SCH (09:14)
[2019-12-16] MEDS: *HR* HYDROcodone/Acet 7.5/325 mg TABLET PO PRN (09:15)
[2019-12-16] MEDS: Aspirin 81 MG TAB.CHEW PO SCH (09:16)
[2019-12-16] MEDS: Metoprolol XL (24 HR) Succ 25 MG TAB.ER.24H PO SCH (09:16)
[2019-12-16] MEDS: Insulin LISPRO 300 UNITS/3 ML VIAL SQ SCH ×2 (09:37→12:44)
[2019-12-16 10:58] VITALS: BP 137/65
[2019-12-16] MEDS ORDERED: predniSONE 20 MG TABLET PO SCH (11:00)
== END 2019-12-16 16:56 | DRG 65 ==
LOC: 3BNU → SUATTDRO 18:37
PROVIDERS: ADMIT Internal Medicine; ATTEND Internal Medicine

== ENCOUNTER 2020-08-22 09:59 | Inpatient (IN) ==
[2020-08-22] MEDS ORDERED: Isovue-370 500 ML BOTTLE IVP ONE (11:26)
[2020-08-22] MEDS ORDERED: Acetaminophen 325 MG TABLET PO ONE (11:29)
[2020-08-22 12:06] LABS: Basophils # 0.1 K/mcL (0.0-0.2); Basophils % 0.5 %; Eosinophils # 0.2 K/mcL (0.0-0.6); Eosinophils % 1.3 %; Hematocrit 33.3 % (37.5-50.1); Hemoglobin 10.5 g/dL (12.9-16.9); Immature Granulocytes % 0.8 % (0-4); Lymphocytes # 2.1 K/mcL (0.6-4.6); Lymphocytes % 16.9 %; Mean Corpuscular HGB Conc 31.5 g/dL (31.6-35.5); Mean Corpuscular Hemoglobin 29.8 pg (28.0-33.3); Mean Corpuscular Volume 94.6 fL (83.0-100.0); Mean Platelet Volume 9.9 fL (9.4-12.4); Monocytes % 8.3 %; Platelet Count 243 K/mcL (140-400); Red Blood Count 3.52 M/mcL (4.19-5.50); Segmented Neutrophils % 72.2 %; White Blood Count 12.5 K/mcL (4.3-11.1)
[2020-08-22 12:20] LABS: Activated Partial Thrombo Time 30.4 Seconds (26.0-36.0)
[2020-08-22 12:22] LABS: Clarity,Urine Cloudy (Clear); Color,Urine Dark Red (Yellow)
[2020-08-22 12:26] LABS: Bilirubin,Urine Negative (Negative); Blood,Urine Large (Negative); Glucose,Urine (UA) 70 mg/dL (Normal); Ketones,Urine Negative (Negative); Leukocyte Esterase,Urine Trace (Negative); Nitrite,Urine Negative (Negative); Protein,Urine >=600 mg/dL (Neg-Trace); Specific Gravity,Urine 1.023 (1.010-1.025); Urobilinogen,Urine Normal (Normal)
[2020-08-22 12:30] LABS: Albumin 3.7 g/dL (3.5-5.7); Albumin/Globulin Ratio 1.6 (1.1-2.2); Bilirubin,Direct 0.1 mg/dL (0.0-0.2); Bilirubin,Indirect 0.3 mg/dL (0.0-1.0); Bilirubin,Total 0.4 mg/dL (0.3-1.0); Calcium 9.4 mg/dL (8.6-10.3); Globulin 2.3 g/dL (2.4-3.5); Potassium 4.5 mEq/L (3.5-5.1)
[2020-08-22] MEDS ORDERED: Ondansetron 4 MG/2 ML VIAL IVP STA (14:01)
[2020-08-22] MEDS ORDERED: Acetaminophen 325 MG TABLET PO PRN (16:20)
[2020-08-22] MEDS ORDERED: Melatonin 3 MG TABLET PO PRN (16:20)
[2020-08-22] MEDS ORDERED: Ondansetron 4 MG/2 ML VIAL IVP PRN (16:20)
[2020-08-22] MEDS ORDERED: Ipratropium/Albuterol Neb 3 ML IH PRN (16:22)
[2020-08-22] MEDS ORDERED: *HR* HYDROcodone/Acet 10/325 mg TABLET PO PRN (16:22)
[2020-08-22] MEDS: 0.9 % Sodium Chloride 1,000 ML IVC SCH (17:22)
[2020-08-22] MEDS: Metoprolol XL (24 HR) Succ 25 MG TAB.ER.24H PO SCH (20:58)
[2020-08-22] MEDS ORDERED: Aspirin 81 MG TAB.CHEW PO SCH (21:00)
[2020-08-22 22:03] LABS: Adenovirus Not Detected (Not Detect); Bordetella Pertussis Not Detected (Not Detect); Chlamydophila pneumoniae Not Detected (Not Detect); Coronavirus 229E Not Detected (Not Detect); Coronavirus HKU1 Not Detected (Not Detect); Coronavirus NL63 Not Detected (Not Detect); Coronavirus OC43 Not Detected (Not Detect); Human Metapneumovirus Not Detected (Not Detect); Human Rhinovirus/Enterovirus Not Detected (Not Detect); Influenza A Subtype 2009 H1 Not Detected (Not Detect); Influenza B Not Detected (Not Detect); Mycoplasma pneumoniae Not Detected (Not Detect); Parainfluenza Virus 1 Not Detected (Not Detect); Parainfluenza Virus 2 Not Detected (Not Detect); Parainfluenza Virus 3 Not Detected (Not Detect); Parainfluenza Virus 4 Not Detected (Not Detect); Respiratory Syncytial Virus Not Detected (Not Detect); SARS-CoV-2 Not Detected (Not Detect)
[2020-08-23] MEDS: 0.9 % Sodium Chloride 1,000 ML IVC SCH ×3 (02:56→23:53)
[2020-08-23 04:48] LABS: Hematocrit 26.3 % (37.5-50.1); Mean Corpuscular HGB Conc 33.1 g/dL (31.6-35.5); Mean Corpuscular Hemoglobin 30.4 pg (28.0-33.3); Mean Platelet Volume 9.5 fL (9.4-12.4); Platelet Count 190 K/mcL (140-400); Red Blood Count 2.86 M/mcL (4.19-5.50); Red Cell Distribution Width 13.9 % (11.5-14.5); White Blood Count 13.1 K/mcL (4.3-11.1)
[2020-08-23 04:49] LABS: Hemoglobin 8.7 g/dL (12.9-16.9)
[2020-08-23 04:59] LABS: INR 1.1; Prothrombin Time 12.5 Seconds (9.4-12.1)
[2020-08-23 05:14] LABS: Calcium 8.7 mg/dL (8.6-10.3); Magnesium 1.9 mg/dL (1.6-2.6); Potassium 4.5 mEq/L (3.5-5.1)
[2020-08-23] MEDS: Metoprolol XL (24 HR) Succ 25 MG TAB.ER.24H PO SCH ×2 (07:19→20:25)
[2020-08-23] MEDS ORDERED: lisinopriL 20 MG TABLET PO SCH (09:00)
[2020-08-23] MEDS ORDERED: rOPINIRole 0.25 MG TABLET PO PRN (15:53)
[2020-08-23] MEDS ORDERED: ceFAZolin 2,000 MG in Water for inj. (sterile) 20 ML IVP ONE (17:09)
[2020-08-23] MEDS ORDERED: *HR* FentaNYL (PF) 100 MCG/2 ML VIAL ONE (17:20)
[2020-08-23] MEDS ORDERED: Ondansetron 4 MG/2 ML VIAL ONE (17:21)
[2020-08-23] MEDS ORDERED: Lidocaine -MPF 2% 2 ML VIAL ONE (17:22)
[2020-08-23] MEDS ORDERED: *HR* Propofol 200 MG/20 ML VIAL IVP ONE (17:22)
[2020-08-23] MEDS ORDERED: Isovue-300 50ML VIAL ONE (17:22)
[2020-08-23] MEDS ORDERED: Ondansetron 4 MG/2 ML VIAL IVP PRN (19:18)
[2020-08-23] MEDS ORDERED: Acetaminophen 325 MG TABLET PO PRN (19:18)
[2020-08-23] MEDS ORDERED: Melatonin 3 MG TABLET PO PRN (19:18)
[2020-08-23] MEDS ORDERED: Ipratropium/Albuterol Neb 3 ML IH PRN (19:18)
[2020-08-23] MEDS: *HR* HYDROcodone/Acet 10/325 mg TABLET PO PRN (20:25)
[2020-08-23] MEDS: Aspirin 81 MG TAB.CHEW PO SCH (20:26)
[2020-08-24 04:40] LABS: Hematocrit 24.5 % (37.5-50.1); Hemoglobin 7.9 g/dL (12.9-16.9); Mean Corpuscular HGB Conc 32.2 g/dL (31.6-35.5); Mean Corpuscular Hemoglobin 30.9 pg (28.0-33.3); Mean Corpuscular Volume 95.7 fL (83.0-100.0); Mean Platelet Volume 9.8 fL (9.4-12.4); Platelet Count 172 K/mcL (140-400); Red Blood Count 2.56 M/mcL (4.19-5.50); Red Cell Distribution Width 14.5 % (11.5-14.5); White Blood Count 10.5 K/mcL (4.3-11.1)
[2020-08-24 04:59] LABS: Calcium 8.1 mg/dL (8.6-10.3); Magnesium 1.9 mg/dL (1.6-2.6)
[2020-08-24] MEDS: *HR* HYDROcodone/Acet 10/325 mg TABLET PO PRN ×2 (06:47→16:24)
[2020-08-24] MEDS: Metoprolol XL (24 HR) Succ 25 MG TAB.ER.24H PO SCH ×2 (08:56→20:03)
[2020-08-24] MEDS: 0.9 % Sodium Chloride 1,000 ML IVC SCH (08:56)
[2020-08-24] MEDS: rOPINIRole 0.25 MG TABLET PO PRN (16:25)
[2020-08-24] MEDS: Aspirin 81 MG TAB.CHEW PO SCH (20:02)
[2020-08-24 20:09] LABS: Hematocrit 26.2 % (37.5-50.1); Hemoglobin 8.3 g/dL (12.9-16.9); Mean Corpuscular HGB Conc 31.7 g/dL (31.6-35.5); Mean Corpuscular Hemoglobin 30.3 pg (28.0-33.3); Mean Corpuscular Volume 95.6 fL (83.0-100.0); Mean Platelet Volume 10.1 fL (9.4-12.4); Platelet Count 194 K/mcL (140-400); Red Blood Count 2.74 M/mcL (4.19-5.50); Red Cell Distribution Width 14.4 % (11.5-14.5); White Blood Count 14.8 K/mcL (4.3-11.1)
[2020-08-25 01:02] LABS: Calcium 8.3 mg/dL (8.6-10.3)
[2020-08-25 01:08] LABS: Basophils % 0.1 %; Eosinophils % 0.1 %; Hematocrit 28.3 % (37.5-50.1); Hemoglobin 8.8 g/dL (12.9-16.9); Immature Granulocytes % 0.6 % (0-4); Lymphocytes # 0.9 K/mcL (0.6-4.6); Lymphocytes % 5.6 %; Mean Corpuscular HGB Conc 31.1 g/dL (31.6-35.5); Mean Corpuscular Hemoglobin 29.9 pg (28.0-33.3); Mean Corpuscular Volume 96.3 fL (83.0-100.0); Mean Platelet Volume 10.3 fL (9.4-12.4); Monocytes # 1.3 K/mcL (0.0-1.3); Monocytes % 7.8 %; Neutrophils # 14.1 K/mcL (1.6-8.9); Platelet Count 217 K/mcL (140-400); Red Blood Count 2.94 M/mcL (4.19-5.50); Red Cell Distribution Width 14.1 % (11.5-14.5); Segmented Neutrophils % 85.8 %; White Blood Count 16.4 K/mcL (4.3-11.1)
[2020-08-25] MEDS: *HR* HYDROcodone/Acet 10/325 mg TABLET PO PRN ×3 (01:50→19:03)
[2020-08-25 06:37] LABS: ABG Base Excess -7 mEq/L (-2 to 3); ABG HCO3 18 mEq/L (21-27); ABG Oxygen Saturation 88 % (95-98); ABG PCO2 34 mmHg (35-45); ABG PH 7.33 pH Units (7.32-7.45); ABG PO2 57 mmHg (85-104); ABG TCO2 19 mEq/L (20-26)
[2020-08-25] MEDS ORDERED: Furosemide 40 MG/4 ML VIAL IVP ONE (06:57)
[2020-08-25] MEDS: Metoprolol XL (24 HR) Succ 25 MG TAB.ER.24H PO SCH ×2 (07:57→21:23)
[2020-08-25] MEDS: Ipratropium/Albuterol Neb 3 ML IH SCH ×3 (10:46→20:54)
[2020-08-25] MEDS: cefTRIAXone 1,000 MG in Water for inj. (sterile) 10 ML IVP SCH (10:59)
[2020-08-25 15:01] LABS: Hematocrit 29.8 % (37.5-50.1); Hemoglobin 9.6 g/dL (12.9-16.9); Mean Corpuscular HGB Conc 32.2 g/dL (31.6-35.5); Mean Corpuscular Hemoglobin 30.4 pg (28.0-33.3); Mean Corpuscular Volume 94.3 fL (83.0-100.0); Mean Platelet Volume 10.4 fL (9.4-12.4); Platelet Count 220 K/mcL (140-400); Red Blood Count 3.16 M/mcL (4.19-5.50); Red Cell Distribution Width 13.9 % (11.5-14.5); White Blood Count 16.6 K/mcL (4.3-11.1)
[2020-08-25 15:20] LABS: Calcium 8.5 mg/dL (8.6-10.3); Potassium 4.7 mEq/L (3.5-5.1)
[2020-08-25] MEDS: Aspirin 81 MG TAB.CHEW PO SCH (21:23)
[2020-08-25] MEDS: rOPINIRole 0.25 MG TABLET PO PRN (21:35)
[2020-08-26] MEDS: Ipratropium/Albuterol Neb 3 ML IH SCH ×4 (03:33→22:38)
[2020-08-26] MEDS: *HR* HYDROcodone/Acet 10/325 mg TABLET PO PRN ×3 (06:02→20:28)
[2020-08-26 06:39] LABS: Hemoglobin 8.3 g/dL (12.9-16.9); Mean Corpuscular HGB Conc 31.9 g/dL (31.6-35.5); Mean Corpuscular Volume 93.9 fL (83.0-100.0); Mean Platelet Volume 9.9 fL (9.4-12.4); Platelet Count 203 K/mcL (140-400); Red Blood Count 2.77 M/mcL (4.19-5.50); Red Cell Distribution Width 14.1 % (11.5-14.5); White Blood Count 10.9 K/mcL (4.3-11.1)
[2020-08-26 06:41] LABS: VBG HCO3 21 mEq/L (21-27); VBG PCO2 33 mmHg (41-51); VBG PO2 35 mmHg (25-50)
[2020-08-26 06:58] LABS: Calcium 8.5 mg/dL (8.6-10.3); Potassium 4.5 mEq/L (3.5-5.1)
[2020-08-26] MEDS: cefTRIAXone 1,000 MG in Water for inj. (sterile) 10 ML IVP SCH (08:18)
[2020-08-26] MEDS: Metoprolol XL (24 HR) Succ 25 MG TAB.ER.24H PO SCH ×2 (08:18→20:24)
[2020-08-26] MEDS: rOPINIRole 0.25 MG TABLET PO PRN (11:42)
[2020-08-26] MEDS: Aspirin 81 MG TAB.CHEW PO SCH (20:23)
[2020-08-27 01:43] LABS: Hematocrit 25.2 % (37.5-50.1); Mean Corpuscular HGB Conc 31.7 g/dL (31.6-35.5); Mean Corpuscular Volume 94.4 fL (83.0-100.0); Mean Platelet Volume 10.5 fL (9.4-12.4); Platelet Count 224 K/mcL (140-400); Red Blood Count 2.67 M/mcL (4.19-5.50); White Blood Count 8.6 K/mcL (4.3-11.1)
[2020-08-27 02:07] LABS: Calcium 8.4 mg/dL (8.6-10.3); Magnesium 1.9 mg/dL (1.6-2.6); Phosphorous 4.2 mg/dL (2.7-4.5); Potassium 4.3 mEq/L (3.5-5.1)
[2020-08-27 02:09] LABS: % Iron Saturation 5 % (20-55); Iron 11 mcg/dL (65-175); Transferrin 169 mg/dL (203-362)
[2020-08-27 02:20] LABS: Ferritin 103 ng/mL (20-250)
[2020-08-27] MEDS: Ipratropium/Albuterol Neb 3 ML IH SCH ×4 (04:00→22:53)
[2020-08-27] MEDS: Metoprolol XL (24 HR) Succ 25 MG TAB.ER.24H PO SCH ×2 (08:54→22:09)
[2020-08-27] MEDS: cefTRIAXone 1,000 MG in Water for inj. (sterile) 10 ML IVP SCH (08:56)
[2020-08-27] MEDS: *HR* HYDROcodone/Acet 10/325 mg TABLET PO PRN (09:09)
[2020-08-27] MEDS ORDERED: Ferumoxytol 510 MG in 0.9 % Sodium Chloride 100 ML IVPB ONE (12:00)
[2020-08-27] MEDS ORDERED: *HR* Dextrose 50 % in Water (Vial) 50 ML VIAL IVP PRN (21:43)
[2020-08-27] MEDS ORDERED: Dextrose Gel 15 GM/37.5 ML TUBE PO PRN ×2 (21:43)
[2020-08-27] MEDS ORDERED: D5% in Water 1,000 ML IVC PRN (21:43)
[2020-08-27] MEDS ORDERED: Insulin LISPRO 300 UNITS/3 ML VIAL SUBQ SCH (21:45)
[2020-08-27] MEDS: Aspirin 81 MG TAB.CHEW PO SCH (22:09)
[2020-08-28] MEDS: *HR* HYDROcodone/Acet 10/325 mg TABLET PO PRN ×2 (01:21→11:16)
[2020-08-28] MEDS: Ipratropium/Albuterol Neb 3 ML IH SCH ×2 (04:27→10:31)
[2020-08-28 09:23] LABS: Hematocrit 27.9 % (37.5-50.1); Hemoglobin 8.9 g/dL (12.9-16.9); Mean Corpuscular HGB Conc 31.9 g/dL (31.6-35.5); Mean Corpuscular Hemoglobin 29.9 pg (28.0-33.3); Mean Corpuscular Volume 93.6 fL (83.0-100.0); Mean Platelet Volume 10.1 fL (9.4-12.4); Platelet Count 240 K/mcL (140-400); Red Blood Count 2.98 M/mcL (4.19-5.50); Red Cell Distribution Width 13.9 % (11.5-14.5); White Blood Count 6.5 K/mcL (4.3-11.1)
[2020-08-28] MEDS: Insulin LISPRO 300 UNITS/3 ML VIAL SUBQ SCH ×2 (09:35→11:14)
[2020-08-28 09:43] LABS: Calcium 8.6 mg/dL (8.6-10.3); Potassium 4.4 mEq/L (3.5-5.1)
[2020-08-28] MEDS: Metoprolol XL (24 HR) Succ 25 MG TAB.ER.24H PO SCH (10:10)
[2020-08-28 10:20] VITALS: BP 147/54
== END 2020-08-28 15:07 | DRG 659 ==
LOC: 3BNU 09:59 → EMEROOARM 09:59 → SUATTDRO 16:57 → 3BNU 18:26 → 2NENU 08-25 18:52
PROVIDERS: ADMIT Internal Medicine; ATTEND Internal Medicine

== ENCOUNTER 2020-11-10 13:37 | Inpatient (IN) ==
[2020-11-10] MEDS ORDERED: Naloxone 0.4 MG/ML INJ IVP PRN (16:32)
[2020-11-10] MEDS ORDERED: Ondansetron 4 MG/2 ML VIAL IVP PRN (16:32)
[2020-11-10] MEDS ORDERED: Acetaminophen 325 MG TABLET PO PRN (16:32)
[2020-11-10 17:46] LABS: VBG HCO3 19 mEq/L (21-27); VBG PCO2 20 mmHg (41-51); VBG PH 7.58 pH Units (7.32-7.42); VBG PO2 169 mmHg (25-50)
[2020-11-10 18:09] LABS: Bilirubin,Direct 0.1 mg/dL (0.0-0.2); Bilirubin,Indirect 0.3 mg/dL (0.0-1.0); Bilirubin,Total 0.4 mg/dL (0.3-1.0); Calcium 8.4 mg/dL (8.6-10.3); Magnesium 1.9 mg/dL (1.6-2.6); Phosphorous 3.9 mg/dL (2.7-4.5); Potassium 4.5 mEq/L (3.5-5.1)
[2020-11-10 18:10] LABS: Amphetamine Screen,Urine Negative ng/mL (Cutoff=1000); Barbiturate Screen,Urine Negative ng/mL (Cutoff=200); Benzodiazepines Screen,Urine Negative ng/mL (Cutoff=200); Cannabinoid Screen,Urine Negative ng/mL (Cutoff = 50); Cocaine Screen,Urine Negative ng/mL (Cutoff= 300); Opiate Screen,Urine Negative ng/mL (Cutoff=300); Phencyclidine Screen,Urine Negative ng/mL (Cutoff=25)
[2020-11-10 18:17] LABS: Bilirubin,Urine Negative (Negative); Blood,Urine Large (Negative); Clarity,Urine Ex.Turbid (Clear); Color,Urine Red (Yellow); Glucose,Urine (UA) Normal (Normal); Ketones,Urine Trace mg/dL (Negative); Leukocyte Esterase,Urine Large (Negative); Nitrite,Urine Negative (Negative); PH,Urine 6.5 pH Units (5.0-8.0); Protein,Urine >=600 mg/dL (Neg-Trace); Specific Gravity,Urine 1.016 (1.010-1.025); Urobilinogen,Urine Normal (Normal)
[2020-11-10 18:19] LABS: RBC,Urine Present per hpf (0-3)
[2020-11-10 18:20] LABS: Bacteria,Urine Present per hpf (None-Few); WBC,Urine Present per hpf (0-3)
[2020-11-10 18:24] LABS: Troponin I 0.06 ng/mL (< 0.04)
[2020-11-10] MEDS ORDERED: Ipratropium/Albuterol Neb 3 ML IH PRN (19:21)
[2020-11-10] MEDS ORDERED: D5% in Water 1,000 ML IVC PRN (19:21)
[2020-11-10] MEDS ORDERED: Dextrose Gel 15 GM/37.5 ML TUBE PO PRN ×2 (19:21)
[2020-11-10] MEDS ORDERED: *HR* Dextrose 50 % in Water (Vial) 50 ML VIAL IVP PRN (19:21)
[2020-11-10] MEDS: Ringers Solution, Lactated 1,000 ML IVC SCH (21:09)
[2020-11-10] MEDS: Insulin LISPRO 300 UNITS/3 ML VIAL SUBQ SCH (21:31)
[2020-11-11 04:53] LABS: Basophils % 0.4 %; Eosinophils # 0.2 K/mcL (0.0-0.6); Eosinophils % 2.4 %; Hematocrit 32.8 % (37.5-50.1); Hemoglobin 10.8 g/dL (12.9-16.9); Lymphocytes # 1.9 K/mcL (0.6-4.6); Lymphocytes % 26.9 %; Mean Corpuscular HGB Conc 32.9 g/dL (31.6-35.5); Mean Corpuscular Hemoglobin 30.9 pg (28.0-33.3); Mean Corpuscular Volume 93.7 fL (83.0-100.0); Monocytes % 13.8 %; Neutrophils # 3.9 K/mcL (1.6-8.9); Platelet Count 263 K/mcL (140-400); Red Cell Distribution Width 14.8 % (11.5-14.5); Segmented Neutrophils % 55.5 %; White Blood Count 7.1 K/mcL (4.3-11.1)
[2020-11-11 06:19] LABS: Magnesium 1.9 mg/dL (1.6-2.6); Potassium 4.3 mEq/L (3.5-5.1)
[2020-11-11 06:43] LABS: Troponin I 0.09 ng/mL (< 0.04)
[2020-11-11 11:00] LABS: Calcium 8.7 mg/dL (8.6-10.3)
[2020-11-11] MEDS: Insulin LISPRO 300 UNITS/3 ML VIAL SUBQ SCH ×4 (14:38→20:21)
[2020-11-11] MEDS: Ringers Solution, Lactated 1,000 ML IVC SCH (15:50)
[2020-11-11] MEDS: Metoprolol XL (24 HR) Succ 25 MG TAB.ER.24H PO SCH (20:20)
[2020-11-11] MEDS: rOPINIRole 1 MG TABLET PO SCH (20:20)
[2020-11-11] MEDS: Aspirin 81 MG TAB.CHEW PO SCH (20:20)
[2020-11-11] MEDS ORDERED: Mirtazapine 15 MG TABLET PO SCH (21:00)
[2020-11-11] MEDS ORDERED: LOVASTATIN 40 MG PO SCH (21:00)
[2020-11-12 05:59] LABS: Calcium 8.4 mg/dL (8.6-10.3); Magnesium 1.7 mg/dL (1.6-2.6); Potassium 4.3 mEq/L (3.5-5.1)
[2020-11-12] MEDS: Insulin LISPRO 300 UNITS/3 ML VIAL SUBQ SCH ×3 (08:06→17:48)
[2020-11-12] MEDS: Metoprolol XL (24 HR) Succ 25 MG TAB.ER.24H PO SCH ×2 (08:43→20:46)
[2020-11-12] MEDS: Cholecalciferol (D-3) 1,000 UNIT (25MCG) TABLET PO SCH (08:43)
[2020-11-12] MEDS: Multivit/Ca/Min/Fe/FA 1 TAB TABLET PO SCH (08:43)
[2020-11-12 10:55] LABS: Estimated Average Glucose 252 mg/dl; Hemoglobin A1C 10.4 %
[2020-11-12 12:11] LABS: Basophils % 0.1 %; Eosinophils # 0.2 K/mcL (0.0-0.6); Eosinophils % 2.9 %; Hematocrit 29.4 % (37.5-50.1); Hemoglobin 9.6 g/dL (12.9-16.9); Lymphocytes # 1.6 K/mcL (0.6-4.6); Lymphocytes % 20.7 %; Mean Corpuscular HGB Conc 32.7 g/dL (31.6-35.5); Mean Corpuscular Volume 94.8 fL (83.0-100.0); Mean Platelet Volume 9.4 fL (9.4-12.4); Monocytes % 12.4 %; Neutrophils # 4.9 K/mcL (1.6-8.9); Platelet Count 235 K/mcL (140-400); Segmented Neutrophils % 62.9 %; White Blood Count 7.8 K/mcL (4.3-11.1)
[2020-11-12] MEDS: Ringers Solution, Lactated 1,000 ML IVC SCH (14:21)
[2020-11-12] MEDS: Aspirin 81 MG TAB.CHEW PO SCH (20:46)
[2020-11-12] MEDS: rOPINIRole 1 MG TABLET PO SCH (20:46)
[2020-11-12] MEDS: Insulin DETEMIR 100 UNIT/ML X5UNITS SUBQ SCH (20:47)
[2020-11-13 02:41] LABS: Basophils % 0.4 %; Eosinophils # 0.3 K/mcL (0.0-0.6); Eosinophils % 3.5 %; Hematocrit 28.5 % (37.5-50.1); Hemoglobin 9.2 g/dL (12.9-16.9); Immature Granulocytes % 1.3 % (0-4); Lymphocytes # 1.7 K/mcL (0.6-4.6); Mean Corpuscular HGB Conc 32.3 g/dL (31.6-35.5); Mean Corpuscular Hemoglobin 30.1 pg (28.0-33.3); Mean Corpuscular Volume 93.1 fL (83.0-100.0); Mean Platelet Volume 9.1 fL (9.4-12.4); Monocytes % 14.3 %; Platelet Count 213 K/mcL (140-400); Red Blood Count 3.06 M/mcL (4.19-5.50); Red Cell Distribution Width 14.6 % (11.5-14.5); Segmented Neutrophils % 56.5 %; White Blood Count 7.1 K/mcL (4.3-11.1)
[2020-11-13 02:58] LABS: Calcium 8.1 mg/dL (8.6-10.3); Magnesium 1.7 mg/dL (1.6-2.6); Potassium 4.2 mEq/L (3.5-5.1)
[2020-11-13] MEDS: Ringers Solution, Lactated 1,000 ML IVC SCH ×4 (06:16→21:04)
[2020-11-13] MEDS ORDERED: Fosfomycin Tromethamine 3 GM Packet PO ONE (08:00)
[2020-11-13] MEDS: Insulin LISPRO 300 UNITS/3 ML VIAL SUBQ SCH ×3 (08:43→16:51)
[2020-11-13] MEDS: Cholecalciferol (D-3) 1,000 UNIT (25MCG) TABLET PO SCH (09:43)
[2020-11-13] MEDS: Multivit/Ca/Min/Fe/FA 1 TAB TABLET PO SCH (09:43)
[2020-11-13] MEDS: Metoprolol XL (24 HR) Succ 25 MG TAB.ER.24H PO SCH ×2 (09:48→21:03)
[2020-11-13] MEDS: Insulin DETEMIR 100 UNIT/ML X5UNITS SUBQ SCH ×2 (09:49→21:04)
[2020-11-13] MEDS: rOPINIRole 1 MG TABLET PO SCH (21:03)
[2020-11-13] MEDS: Aspirin 81 MG TAB.CHEW PO SCH (21:03)
[2020-11-14 05:35] LABS: Basophils % 0.4 %; Eosinophils # 0.3 K/mcL (0.0-0.6); Eosinophils % 3.6 %; Hematocrit 30.2 % (37.5-50.1); Hemoglobin 9.9 g/dL (12.9-16.9); Immature Granulocytes % 1.3 % (0-4); Lymphocytes # 2.1 K/mcL (0.6-4.6); Mean Corpuscular HGB Conc 32.8 g/dL (31.6-35.5); Mean Corpuscular Volume 94.7 fL (83.0-100.0); Mean Platelet Volume 9.3 fL (9.4-12.4); Monocytes # 1.1 K/mcL (0.0-1.3); Neutrophils # 5.4 K/mcL (1.6-8.9); Platelet Count 241 K/mcL (140-400); Red Blood Count 3.19 M/mcL (4.19-5.50); Red Cell Distribution Width 14.6 % (11.5-14.5); Segmented Neutrophils % 59.7 %; White Blood Count 9.1 K/mcL (4.3-11.1)
[2020-11-14 05:53] LABS: Calcium 8.5 mg/dL (8.6-10.3); Magnesium 1.8 mg/dL (1.6-2.6); Potassium 4.4 mEq/L (3.5-5.1)
[2020-11-14] MEDS: Insulin LISPRO 300 UNITS/3 ML VIAL SUBQ SCH ×3 (08:00→17:20)
[2020-11-14] MEDS: Cholecalciferol (D-3) 1,000 UNIT (25MCG) TABLET PO SCH (08:54)
[2020-11-14] MEDS: Multivit/Ca/Min/Fe/FA 1 TAB TABLET PO SCH (08:54)
[2020-11-14] MEDS: Metoprolol XL (24 HR) Succ 25 MG TAB.ER.24H PO SCH ×2 (08:55→21:11)
[2020-11-14] MEDS: Insulin DETEMIR 100 UNIT/ML X5UNITS SUBQ SCH (10:02)
[2020-11-14] MEDS: Ringers Solution, Lactated 1,000 ML IVC SCH (17:25)
[2020-11-14] MEDS ORDERED: Insulin DETEMIR 100 UNIT/ML X5UNITS SUBQ SCH (21:00)
[2020-11-14] MEDS: rOPINIRole 1 MG TABLET PO SCH (21:11)
[2020-11-14] MEDS: Aspirin 81 MG TAB.CHEW PO SCH (21:11)
[2020-11-15] MEDS: Ringers Solution, Lactated 1,000 ML IVC SCH (06:34)
[2020-11-15] MEDS: Insulin LISPRO 300 UNITS/3 ML VIAL SUBQ SCH ×2 (07:49→11:46)
[2020-11-15] MEDS ORDERED: Insulin DETEMIR 100 UNIT/ML X5UNITS SUBQ SCH (09:00)
[2020-11-15] MEDS: Metoprolol XL (24 HR) Succ 25 MG TAB.ER.24H PO SCH (10:00)
[2020-11-15] MEDS: Cholecalciferol (D-3) 1,000 UNIT (25MCG) TABLET PO SCH (10:00)
[2020-11-15] MEDS: Multivit/Ca/Min/Fe/FA 1 TAB TABLET PO SCH (10:01)
[2020-11-15 11:40] LABS: Influenza A PCR Negative (Negative); Influenza B PCR Negative (Negative); Resp. Syncytial Virus PCR Negative (Negative); SARS-CoV-2 by PCR (In House) Negative (Negative)
[2020-11-15 14:48] VITALS: BP 124/54; PULSE 76; TEMP 98; O2SAT 98
[2020-11-16] MEDS ORDERED: Fosfomycin Tromethamine 3 GM Packet PO SCH (15:00)
== END 2020-11-15 18:51 | DRG 689 ==
LOC: 3ANU → SUATTDRO 15:17
PROVIDERS: ADMIT Pharmacist; ATTEND Internal Medicine